=== PATIENT | female | born 1940 | race Caucasian/White ===

== ENCOUNTER 2017-12-03 19:07 | Emergency (ER) | payer MEDICARE, BC ==
[2017-12-03] MEDS: CYCLOBENZAPRINE 10 MG TABLET. PO (19:52)
[2017-12-03] MEDS: HYDROcodone/APAP 5/325MG 1 TAB TABLET PO (19:52)
== END 2017-12-03 20:03 | disposition home or self-care (01) ==
LOC: ER 19:07
DX: M54.42 Lumbago with sciatica, left side (principal); J44.9 Chronic obstructive pulmonary disease, unspecified; I25.2 Old myocardial infarction; I25.10 Atherosclerotic heart disease of native coronary artery without angina pectoris; F17.200 Nicotine dependence, unspecified, uncomplicated; Z95.5 Presence of coronary angioplasty implant and graft
CPT/HCPCS: 99283

== ENCOUNTER 2018-10-06 08:58 | Emergency (ER) | payer MEDICARE, BC ==
[~2018-10-06] VITALS: Ht 170.2 cm; Wt 73.9 kg
[~2018-10-06 08:58] MED LIST: ACET-704 PO; ASPI325T8 PO; BENZ100C PO; CYCL10TA2 PO; FLUT1DIS INH; HYDR-2761 PO
[2018-10-06 09:41] LABS: CALCIUM 8.8 mg/dL (8.5-10.1); CREATININE 1.1 mg/dL (0.7-1.3); GFR 64.9; POTASSIUM 4.3 mmol/L (3.5-5.1)
[2018-10-06 09:47] LABS: ALBUMIN 3.6 g/dL (3.4-5.0); TOTAL BILIRUBIN 0.3 mg/dL (0.2-1.0); TOTAL PROTEIN 7.1 g/dL (6.4-8.2)
[2018-10-06 09:50] LABS: BASO # 0.1 x10^3/uL (0.0-0.2); BASO % 1 % (0-3); EOS # 0.3 x10^3/uL (0.0-0.7); EOS % 3 % (0-3); HEMATOCRIT 43.5 % (39.0-53.0); HEMOGLOBIN 15.1 g/dL (13.0-17.5); LYMPH # 2.5 x10^3/uL (1.0-4.8); LYMPH % 26 % (24-48); MEAN CORPUSCULAR HEMOGLOBIN 35 pg (25-35); MEAN CORPUSCULAR HGB CONC 35 g/dL (31-37); MEAN CORPUSCULAR VOLUME 100 fL (79-100); MONO # 0.8 x10^3/uL (0.0-1.1); MONO % 8 % (0-9); NEUT # 5.9 x10^3uL (1.8-7.7); NEUT % 62 % (31-73); PLATELET COUNT 280 x10^3/uL (140-400); RED BLOOD COUNT 4.36 x10^6/uL (4.30-5.70); RED CELL DISTRIBUTION WIDTH 13.3 % (11.5-14.5); WHITE BLOOD COUNT 9.5 x10^3/uL (4.0-11.0)
--- NOTE | 2018-10-06 10:41 | RAD ---
CT HEAD AND MAXILLOFACIAL WO Indication: Right temporal pain increasing the last 2 week Technique: Noncontrast CT imaging was performed of the head and maxillofacial region, multiplanar reconstruction images submitted. One or more of the following individualized dose reduction techniques were utilized for this examination: 1. Automated exposure control 2. Adjustment of the mA and/or kV according to patient size 3. Use of iterative reconstruction technique. Comparison: June 05, [address], March 28, 2010 exams Head: Findings: There is mild supratentorial involutional changes seen previously. Ventricular size is stable, proportionate to sulcal spaces. There is no evidence of acute intracranial hemorrhage. Walker-white differentiation of the major vascular territories is maintained. There is mild ill-defined low-density of the supratentorial parenchyma bilaterally. No acute calvarial abnormality is identified. Right mastoid air cells are incompletely pneumatized more inferiorly, unchanged appearance. There is degree of associated sclerosis although also stable in appearance. IMPRESSION: 1. No acute intracranial abnormality is identified. 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 Maxillofacial CT: FINDINGS: Paranasal sinuses are overall aerated, no air-fluid levels. No acute maxillofacial fracture is identified. There is no new aggressive bone destruction. There is multilevel facet degenerative change of visualized cervical spine. There is mild to moderate narrowing the right C3-C4 neural foramen, minimal narrowing on the left at C4-C5. IMPRESSION: 1. Paranasal sinuses are aerated. Electronically signed by: Rafat Hawthorne MD (10/06/2018 10:37 AM) [email or web address]
[2018-10-06] MEDS ORDERED: HYDR-3164 PO (10:51)
--- NOTE | 2018-10-06 10:52 | PHYS DOC ---
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 The patient states that he was having some intermittent pain over the past 2 weeks that has worsened. He denies history of migraine. He denies nausea or vomiting, or fever. He has tried ibuprofen and Tylenol with little relief. 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) Review of Systems Review of Systems Constitutional: Denies fever or chills [] Eyes: Denies change in visual acuity, redness, or eye pain [] HENT: Denies nasal congestion or sore throat [] Respiratory: Denies cough or shortness of breath [] Cardiovascular: No additional information not addressed in HPI [] GI: Denies abdominal pain, nausea, vomiting, bloody stools or diarrhea [] : Denies dysuria or hematuria [] Musculoskeletal: Denies back pain or joint pain [] Integument: Denies rash or skin lesions [] Neurologic: See history of present illness Endocrine: Denies polyuria or polydipsia [] All other systems were reviewed and found to be within normal limits, except as documented in this note. 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 [] HENT: Normocephalic, atraumatic, bilateral external ears normal, oropharynx moist, no oral exudates, nose normal. [] Eyes: PERRLA, EOMI, conjunctiva normal, no discharge. [] Neck: Normal range of motion, no tenderness, supple, no stridor. [] Cardiovascular:Heart rate regular rhythm, no murmur [] Lungs & Thorax: Bilateral breath sounds clear to auscultation [] Abdomen: Bowel sounds normal, soft, no tenderness, no masses, no pulsatile masses. [] Skin: Warm, dry, no erythema, no rash. [] Back: No tenderness, no CVA tenderness. [] Extremities: No tenderness, no cyanosis, no clubbing, ROM intact, no edema. [] Neurologic: Alert and oriented X 3, normal motor function, normal sensory function, no focal deficits noted, cranial nerves II through XII are grossly intact. [] Psychologic: Affect normal, judgement normal, mood normal. [] (ORLIN KING APRN) Current Patient Data Vital Signs Vital Signs Date Time Temp Pulse Resp B/P (MAP) Pulse Ox O2 Delivery O2 Flow Rate FiO2 10/06/18 10:58 60 20 97 10/06/18 09:02 97.6 158/80 (106) Room Air 97.6 (CANDACE FLORES MD) Lab Values Laboratory Tests Test 10/06/18 09:20 White Blood Count 9.5 x10^3/uL (4.0-11.0) Red Blood Count 4.36 x10^6/uL (4.30-5.70) Hemoglobin 15.1 g/dL (13.0-17.5) Hematocrit 43.5 % (39.0-53.0) Mean Corpuscular Volume 100 fL (79-100) Mean Corpuscular Hemoglobin 35 pg (25-35) Mean Corpuscular Hemoglobin Concent 35 g/dL (31-37) Red Cell Distribution Width 13.3 % (11.5-14.5) Platelet Count 280 x10^3/uL (140-400) Neutrophils (%) (Auto) 62 % (31-73) Lymphocytes (%) (Auto) 26 % (24-48) Monocytes (%) (Auto) 8 % (0-9) Eosinophils (%) (Auto) 3 % (0-3) Basophils (%) (Auto) 1 % (0-3) Neutrophils # (Auto) 5.9 x10^3uL (1.8-7.7) Lymphocytes # (Auto) 2.5 x10^3/uL (1.0-4.8) Monocytes # (Auto) 0.8 x10^3/uL (0.0-1.1) Eosinophils # (Auto) 0.3 x10^3/uL (0.0-0.7) Basophils # (Auto) 0.1 x10^3/uL (0.0-0.2) Sodium Level 136 mmol/L (136-145) Potassium Level 4.3 mmol/L (3.5-5.1) Chloride Level 102 mmol/L (98-107) Carbon Dioxide Level 25 mmol/L (21-32) Anion Gap 9 (6-14) Blood Urea Nitrogen 14 mg/dL (8-26) Creatinine 1.1 mg/dL (0.7-1.3) Estimated GFR (Cockcroft-Gault) 64.9 BUN/Creatinine Ratio 13 (6-20) Glucose Level 112 mg/dL (70-99) H Calcium Level 8.8 mg/dL (8.5-10.1) Total Bilirubin 0.3 mg/dL (0.2-1.0) Aspartate Amino Transferase (AST) 15 U/L (15-37) Alanine Aminotransferase (ALT) 18 U/L (16-63) Alkaline Phosphatase 69 U/L (46-116) Total Protein 7.1 g/dL (6.4-8.2) Albumin 3.6 g/dL (3.4-5.0) Albumin/Globulin Ratio 1.0 (1.0-1.7) Laboratory Tests 10/06/18 09:20 Laboratory Tests 10/06/18 09:20 (CANDACE FLORES MD) EKG EKG [] (ORLIN KING APRN) Radiology/Procedures Radiology/Procedures [] PATIENT: JERILYN GOMEZ ACCOUNT: [id number] : 1940 LOCATION: ER AGE: 77 SEX: M EXAM STATUS: REG ER ORD. PHYSICIAN: ORLIN KING APRN REASON: right temporal pain increasing over the last two weeks PROCEDURE: CT HEAD AND MAXILLOFACIAL WO CT HEAD AND MAXILLOFACIAL WO Indication: Right temporal pain increasing the last 2 week Technique: Noncontrast CT imaging was performed of the head and maxillofacial region, multiplanar reconstruction images submitted. One or more of the following individualized dose reduction techniques were utilized for this examination: 1. Automated exposure control 2. Adjustment of the mA and/or kV according to patient size 3. Use of iterative reconstruction technique. Comparison: June 05, [address], March 28, 2010 exams Head: Findings: There is mild supratentorial involutional changes seen previously. Ventricular size is stable, proportionate to sulcal spaces. There is no evidence of acute intracranial hemorrhage. Walker-white differentiation of the major vascular territories is maintained. There is mild ill-defined low-density of the supratentorial parenchyma bilaterally. No acute calvarial abnormality is identified. Right mastoid air cells are incompletely pneumatized more inferiorly, unchanged appearance. There is degree of associated sclerosis although also stable in appearance. IMPRESSION: 1. No acute intracranial abnormality is identified. 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 Maxillofacial CT: FINDINGS: Paranasal sinuses are overall aerated, no air-fluid levels. No acute maxillofacial fracture is identified. There is no new aggressive bone destruction. There is multilevel facet degenerative change of visualized cervical spine. There is mild to moderate narrowing the right C3-C4 neural foramen, minimal narrowing on the left at C4-C5. IMPRESSION: 1. Paranasal sinuses are aerated. Electronically signed by: Reece Blanc MD (10/06/2018 10:37 AM) [id number] DICTATED and SIGNED BY: REECE BLANC MD DATE: 10/06/18 1037 (ORLIN KING APRN) Course & Med Decision Making Course & Med Decision Making Pertinent Labs and Imaging studies reviewed. (See chart for details) [] (ORLIN KING APRN) Course & Med Decision Making Staff Physician Addendum: I was working in the ER during the course of this patient's visit. I was available for consultation as needed, but I was not directly involved in the care of this patient. (CANDACE FLORES MD) Dragon Disclaimer Dragon Disclaimer This electronic medical record was generated, in whole or in part, using a voice recognition dictation system. (ORLIN KING APRN) Departure Departure Impression: Primary Impression: Right temporal headache Disposition: HOME, SELF-CARE Condition: STABLE Referrals: UNKNOWN PCP NAME (PCP) Patient Instructions: General Headache Without Cause Additional Instructions: Take medication as directed. Do not drive while taking this medication. Follow- up with your primary care provider for further recheck in 4 days. If worsening return to the emergency department. Scripts Hydrocodone/Apap 5-325 (NORCO 5-325 TABLET) 1 Each Tablet 1 TAB PO PRN Q6HRS PRN for PAIN, #14 TAB 0 Refills Prov: ORLIN KING APRN 10/06/18 ORLIN KING APRN Oct 06, 2018 10:52 CANDACE FLORES MD Oct 07, 2018 18:38
[2018-10-06 10:58] VITALS: BP 147/70
== END 2018-10-06 11:05 | disposition home or self-care (01) ==
LOC: ER 08:58
DX: R51 Headache (principal); H61.22 Impacted cerumen, left ear; E03.9 Hypothyroidism, unspecified; I25.2 Old myocardial infarction; G89.29 Other chronic pain; F17.200 Nicotine dependence, unspecified, uncomplicated
CPT/HCPCS: 36415; 69209; 70450; 70486; 80053; 85025; 99285-25

== ENCOUNTER 2019-05-08 09:51 | Emergency (ER) | payer MEDICARE, BC ==
[~2019-05-08] VITALS: Ht 167.6 cm; Wt 63.5 kg
[~2019-05-08 09:51] MED LIST changes: +HYDR-3164 PO
--- NOTE | 2019-05-08 10:20 | PHYS DOC ---
Past Medical History Past Medical History: Hypothyroid, [place], Other Additional Past Medical Histor: CHRONIC BACK PAIN Past Surgical History: Other Additional Past Surgical Histo: BACK,TOE AMPUTATIONS,KNEE Alcohol Use: None Drug Use: None Adult General Chief Complaint Chief Complaint: ABDOMINAL PAIN HPI HPI 70-year-old male presents to the emergency Department complaints of pain to the left upper quadrant. He states has been ongoing several months off and on however last night was worse. He states he felt a knot in his left upper abdomen with no radiation. He denies any nausea, vomiting, fever, diarrhea, constipation. Nothing makes the pain worse, nothing makes the pain better. Review of Systems Review of Systems Constitutional: Denies fever or chills [] Eyes: Denies change in visual acuity, redness, or eye pain [] HENT: Denies nasal congestion or sore throat [] Respiratory: Denies cough or shortness of breath [] Cardiovascular: No additional information not addressed in HPI [] GI: Denies abdominal pain, nausea, vomiting, bloody stools or diarrhea [] : Denies dysuria or hematuria [] Musculoskeletal: Denies back pain or joint pain [] Integument: Denies rash or skin lesions [] Neurologic: Denies headache, focal weakness or sensory changes [] Endocrine: Denies polyuria or polydipsia [] All other systems were reviewed and found to be within normal limits, except as documented in this note. Allergies Allergies Allergies Coded Allergies Type Severity Reaction Last Updated Verified No Known Drug Allergies 09/14/13 No Physical Exam Physical Exam Constitutional: Well developed, well nourished, no acute distress, non-toxic appearance. [] HENT: Normocephalic, atraumatic, bilateral external ears normal, oropharynx moist, no oral exudates, nose normal. [] Eyes: PERRLA, EOMI, conjunctiva normal, no discharge. [] Cardiovascular:Heart rate regular rhythm, no murmur [] Lungs & Thorax: Bilateral breath sounds clear to auscultation [] Abdomen: Bowel sounds normal, soft, no tenderness, no masses, no pulsatile masses. [] Skin: Warm, dry, no erythema, no rash. [] Back: No tenderness, no CVA tenderness. [] Extremities: No tenderness, no edema. [] Neurologic: Alert and oriented X 3, no focal deficits noted. [] Psychologic: Affect normal, judgement normal, mood normal. [] Current Patient Data Vital Signs Vital Signs Date Time Temp Pulse Resp B/P (MAP) Pulse Ox O2 Delivery O2 Flow Rate FiO2 05/08/19 11:08 62 18 104/58 (73) 93 Room Air 05/08/19 10:01 96.4 96.4 Lab Values Laboratory Tests Test 05/08/19 10:30 White Blood Count 5.4 x10^3/uL (4.0-11.0) Red Blood Count 4.26 x10^6/uL (4.30-5.70) L Hemoglobin 14.8 g/dL (13.0-17.5) Hematocrit 41.6 % (39.0-53.0) Mean Corpuscular Volume 98 fL (79-100) Mean Corpuscular Hemoglobin 35 pg (25-35) Mean Corpuscular Hemoglobin Concent 36 g/dL (31-37) Red Cell Distribution Width 12.5 % (11.5-14.5) Platelet Count 250 x10^3/uL (140-400) Neutrophils (%) (Auto) 48 % (31-73) Lymphocytes (%) (Auto) 34 % (24-48) Monocytes (%) (Auto) 11 % (0-9) H Eosinophils (%) (Auto) 6 % (0-3) H Basophils (%) (Auto) 1 % (0-3) Neutrophils # (Auto) 2.6 x10^3/uL (1.8-7.7) Lymphocytes # (Auto) 1.8 x10^3/uL (1.0-4.8) Monocytes # (Auto) 0.6 x10^3/uL (0.0-1.1) Eosinophils # (Auto) 0.3 x10^3/uL (0.0-0.7) Basophils # (Auto) 0.1 x10^3/uL (0.0-0.2) Sodium Level 136 mmol/L (136-145) Potassium Level 4.2 mmol/L (3.5-5.1) Chloride Level 100 mmol/L (98-107) Carbon Dioxide Level 25 mmol/L (21-32) Anion Gap 11 (6-14) Blood Urea Nitrogen 12 mg/dL (8-26) Creatinine 1.0 mg/dL (0.7-1.3) Estimated GFR (Cockcroft-Gault) 72.3 BUN/Creatinine Ratio 12 (6-20) Glucose Level 98 mg/dL (70-99) Calcium Level 8.5 mg/dL (8.5-10.1) Total Bilirubin 0.4 mg/dL (0.2-1.0) Aspartate Amino Transferase (AST) 19 U/L (15-37) Alanine Aminotransferase (ALT) 13 U/L (16-63) L Alkaline Phosphatase 82 U/L (46-116) Troponin I Quantitative < 0.017 ng/mL (0.000-0.055) Total Protein 7.1 g/dL (6.4-8.2) Albumin 3.5 g/dL (3.4-5.0) Albumin/Globulin Ratio 1.0 (1.0-1.7) Lipase 101 U/L (73-393) Laboratory Tests 05/08/19 10:30 Laboratory Tests 05/08/19 10:30 EKG EKG EKG reviewed, normal sinus rhythm, heart rate 64, normal axis no evidence of STEMI. Interpretation time 1027[] Radiology/Procedures Radiology/Procedures [] Course & Med Decision Making Course & Med Decision Making Pertinent Labs and Imaging studies reviewed. (See chart for details) []70-year-old male presents to the emergency Department complaints of pain to the left upper quadrant. He states has been ongoing several months off and on however last night was worse. He states he felt a knot in his left upper abdomen with no radiation. He denies any nausea, vomiting, fever, diarrhea, constipation. Nothing makes the pain worse, nothing makes the pain better. Labs/Imaging reviewed - no acute process identified Bentyl rx provided upon discharge Recommend follow up with PCP Return precautions provided Dragon Disclaimer Dragon Disclaimer This electronic medical record was generated, in whole or in part, using a voice recognition dictation system. Departure Departure Impression: Primary Impression: Abdominal pain Disposition: 01 HOME, SELF-CARE Condition: STABLE Referrals: ROMA FREEMAN MD (PCP) Patient Instructions: Abdominal Pain (Nonspecific) Additional Instructions: Recommend follow up with PCP 3 - 5 days Return to the ER with worsening symptoms, intractable pain, fever, altered mental status Tylenol/Motrin as needed for pain Take medications as recommended Scripts Dicyclomine Hcl (DICYCLOMINE HCL) 10 Mg Capsule 1 CAP PO PRN Q6HRS for 5 Days, #100 CAP 3 Refills Prov: JAH KHALIL MD 05/08/19 Problem Qualifiers Primary Impression: Abdominal pain Abdominal location: unspecified location Qualified Codes: R10.9 - Unspecified abdominal pain JAH KHALIL MD May 08, 2019 10:20
[2019-05-08 10:36] LABS: BASO # 0.1 x10^3/uL (0.0-0.2); BASO % 1 % (0-3); EOS # 0.3 x10^3/uL (0.0-0.7); EOS % 6 % (0-3); HEMATOCRIT 41.6 % (39.0-53.0); HEMOGLOBIN 14.8 g/dL (13.0-17.5); LYMPH # 1.8 x10^3/uL (1.0-4.8); LYMPH % 34 % (24-48); MEAN CORPUSCULAR HEMOGLOBIN 35 pg (25-35); MEAN CORPUSCULAR HGB CONC 36 g/dL (31-37); MEAN CORPUSCULAR VOLUME 98 fL (79-100); MONO # 0.6 x10^3/uL (0.0-1.1); MONO % 11 % (0-9); NEUT # 2.6 x10^3/uL (1.8-7.7); NEUT % 48 % (31-73); PLATELET COUNT 250 x10^3/uL (140-400); RED BLOOD COUNT 4.26 x10^6/uL (4.30-5.70); RED CELL DISTRIBUTION WIDTH 12.5 % (11.5-14.5); WHITE BLOOD COUNT 5.4 x10^3/uL (4.0-11.0)
[2019-05-08 10:48] LABS: CALCIUM 8.5 mg/dL (8.5-10.1); GFR 72.3; POTASSIUM 4.2 mmol/L (3.5-5.1)
[2019-05-08 10:54] LABS: ALBUMIN 3.5 g/dL (3.4-5.0); TOTAL BILIRUBIN 0.4 mg/dL (0.2-1.0); TOTAL PROTEIN 7.1 g/dL (6.4-8.2)
--- NOTE | 2019-05-08 11:20 | RAD ---
AP chest. HISTORY: Left-sided pain AP view was taken of the chest. Comparison is made with a recent study from the [address] There is chronic interstitial lung disease. There is no pleural effusion. There is no confluent infiltrate. Heart is normal in size. There is no pneumothorax. IMPRESSION: 1. Fibrosis or chronic interstitial lung disease. 2. No acute confluent infiltrates. Electronically signed by: Clinton Keith MD (05/08/2019 11:17 AM) [id number]
[2019-05-08] MEDS ORDERED: DICY10CA3 PO (11:24)
[2019-05-08 11:38] VITALS: BP 126/64
--- NOTE | 2019-05-09 10:36 | EKG ---
[facility] [address] [place] [address] Test Date: 2019-05-08 Test Time: 10:27:00 Pat Name: JERILYN GOMEZ Department: Room: Gender: M Ncr Operator: : 1940 Requested By: JAH KHALIL Order Number: [id number] Reading MD: Measurements Intervals [place] Rate: 64 P: 33 IA: 184 QRS: 36 QRSD: 82 T: 42 QT: 392 QTc: 404 Interpretive Statements SINUS RHYTHM R-S TRANSITION ZONE IN V LEADS DISPLACED TO THE RIGHT NO SPECIFIC ECG ABNORMALITIES RI6.01 No previous ECG available for comparison
== END 2019-05-08 11:45 | disposition home or self-care (01) ==
LOC: ER 09:51
DX: R10.12 Left upper quadrant pain (principal); E03.9 Hypothyroidism, unspecified; I25.2 Old myocardial infarction; G89.29 Other chronic pain
CPT/HCPCS: 36415; 71045; 80053; 83690; 84484; 85025; 93005; 99285-25

== ENCOUNTER 2020-04-18 19:53 | Emergency (ER) | payer MEDICARE, BC ==
[~2020-04-18] VITALS: Ht 170.2 cm; Wt 68.0 kg
[~2020-04-18 19:53] MED LIST changes: +DICY10CA3 PO
[2020-04-18 21:53] VITALS: BP 111/56
== END 2020-04-18 22:05 | disposition left against medical advice (07) ==
LOC: ER 19:53
DX: H92.02 Otalgia, left ear (principal); M54.2 Cervicalgia; Z53.21 Procedure and treatment not carried out due to patient leaving prior to being seen by health care provider

== ENCOUNTER 2020-05-19 11:37 | Emergency (ER) | payer MEDICARE, BC ==
[~2020-05-19] VITALS: Ht 170.2 cm; Wt 68.0 kg
--- NOTE | 2020-05-19 11:45 | ED.ADGEN ---
Past Medical History Past Medical History: Hypothyroid, [place], Other Additional Past Medical Histor: CHRONIC BACK PAIN Past Surgical History: Other Additional Past Surgical Histo: BACK,TOE AMPUTATIONS,KNEE, 12 CARDIAC STENTS Smoking Status: Current Every Day Smoker Alcohol Use: None Drug Use: None General Adult EDM: Chief Complaint: HEMORRHOIDS HPI: HPI: Patient is a 79 year old male who arrives ambulatory to the emergency department complaining of rectal discomfort. Patient reports over the past month he has noticed increasing discomfort/pain whenever evacuating his bowels. Patient reports he is put this off her quite some time because he has been caring for his who recently broke her hip. Patient states his is mandated that he go to the emergency department for further evaluation given his discomfort. Despite having this pain, the patient denies any history of blood in his stools. He further denies any abdominal pain, fevers or history of trauma. He is awake, alert and nontoxic appearing. Review of Systems: Review of Systems: Constitutional: Denies fever or chills. [] Eyes: Denies change in visual acuity. [] HENT: Denies nasal congestion or sore throat. [] Respiratory: Denies cough or shortness of breath. [] Cardiovascular: Denies chest pain or edema. [] GI: Reports to rectal pain/discomfort. Denies abdominal pain, nausea, vomiting, bloody stools or diarrhea. [] : Denies dysuria. [] Musculoskeletal: Denies back pain or joint pain. [] Integument: Denies rash. [] Neurologic: Denies headache, focal weakness or sensory changes. [] Endocrine: Denies polyuria or polydipsia. [] Lymphatic: Denies swollen glands. [] Psychiatric: Denies depression or anxiety. [] Current Medications: Current Medications Medications (Trade) Dose Ordered Sig/Maryuri Start Time Stop Time Status Last Admin Dose Admin Iohexol (Omnipaque 300 Mg/ml) 75 ml 1X ONCE 05/19/20 13:45 05/19/20 13:46 DC Allergies: Allergies: Allergies Coded Allergies Type Severity Reaction Last Updated Verified No Known Drug Allergies 09/14/13 No Physical Exam: PE: Constitutional: Well developed, well nourished, no acute distress, non-toxic appearance. [] HENT: Normocephalic, atraumatic, bilateral external ears normal, oropharynx moist, no oral exudates, nose normal. [] Eyes: PERRLA, EOMI, conjunctiva normal, no discharge. [] Neck: Normal range of motion, no tenderness, supple, no stridor. [] Cardiovascular:Heart rate regular rhythm, no murmur [] Lungs & Thorax: Bilateral breath sounds clear to auscultation [] Abdomen: Bowel sounds normal, soft, no tenderness, no masses, no pulsatile masses. [] Skin: Warm, dry, no erythema, no rash. [] Back: No tenderness, no CVA tenderness. [] Extremities: No tenderness, no cyanosis, no clubbing, ROM intact, no edema. [] Neurologic: Alert and oriented X 3, normal motor function, normal sensory function, no focal deficits noted. [] Psychologic: Affect normal, judgement normal, mood normal. [] Current Patient Data: Labs: Laboratory Tests Test 05/19/20 11:50 05/19/20 12:26 White Blood Count 7.9 x10^3/uL (4.0-11.0) Red Blood Count 4.20 x10^6/uL (4.30-5.70) L Hemoglobin 14.2 g/dL (13.0-17.5) Hematocrit 41.8 % (39.0-53.0) Mean Corpuscular Volume 100 fL (79-100) Mean Corpuscular Hemoglobin 34 pg (25-35) Mean Corpuscular Hemoglobin Concent 34 g/dL (31-37) Red Cell Distribution Width 12.7 % (11.5-14.5) Platelet Count 299 x10^3/uL (140-400) Neutrophils (%) (Auto) 54 % (31-73) Lymphocytes (%) (Auto) 32 % (24-48) Monocytes (%) (Auto) 8 % (0-9) Eosinophils (%) (Auto) 5 % (0-3) H Basophils (%) (Auto) 1 % (0-3) Neutrophils # (Auto) 4.2 x10^3/uL (1.8-7.7) Lymphocytes # (Auto) 2.5 x10^3/uL (1.0-4.8) Monocytes # (Auto) 0.6 x10^3/uL (0.0-1.1) Eosinophils # (Auto) 0.4 x10^3/uL (0.0-0.7) Basophils # (Auto) 0.1 x10^3/uL (0.0-0.2) Sodium Level 138 mmol/L (136-145) Potassium Level 4.1 mmol/L (3.5-5.1) Chloride Level 105 mmol/L (98-107) Carbon Dioxide Level 24 mmol/L (21-32) Anion Gap 9 (6-14) Blood Urea Nitrogen 9 mg/dL (8-26) Creatinine 0.9 mg/dL (0.7-1.3) Estimated GFR (Cockcroft-Gault) 81.4 BUN/Creatinine Ratio 10 (6-20) Glucose Level 94 mg/dL (70-99) Calcium Level 8.5 mg/dL (8.5-10.1) Total Bilirubin 0.1 mg/dL (0.2-1.0) L Aspartate Amino Transferase (AST) 17 U/L (15-37) Alanine Aminotransferase (ALT) 13 U/L (16-63) L Alkaline Phosphatase 89 U/L (46-116) Total Protein 6.9 g/dL (6.4-8.2) Albumin 3.0 g/dL (3.4-5.0) L Albumin/Globulin Ratio 0.8 (1.0-1.7) L Laboratory Tests 05/19/20 11:50 Laboratory Tests 05/19/20 12:26 Vital Signs: Vital Signs Date Time Temp Pulse Resp B/P (MAP) Pulse Ox O2 Delivery O2 Flow Rate FiO2 05/19/20 12:47 58 145/72 (96) 96 Room Air 05/19/20 11:40 97.9 20 97.9 EKG: EKG: [] Heart Score: Risk Factors: Risk Factors: DM, Current or recent (<one month) smoker, HTN, HLP, family history of CAD, obesity. Risk Scores: Score 0 - 3: 2.5% MACE over next 6 weeks - Discharge Home Score 4 - 6: 20.3% MACE over next 6 weeks - Admit for Clinical Observation Score 7 - 10: 72.7% MACE over next 6 weeks - Early Invasive Strategies Radiology/Procedures: Radiology/Procedures: [] Impression: [facility] [address] [place] [address] IMAGING REPORT Signed PATIENT: JERILYN GOMEZ ACCOUNT: [id number] : 1940 LOCATION: ER AGE: 79 SEX: M EXAM STATUS: REG ER ORD. PHYSICIAN: ANDI ARGUETA DO REASON: Rectal discomfort PROCEDURE: CT ABD PELV W/ IV CONTRST ONLY Examination: CT ABDOMEN+PELVIS W History: : Rectal discomfort; prostate cancer/ Spl. Instructions: INJ 75ML OMNI 300 / History: Comparison/Correlation: None Findings: Axial images of the abdomen and pelvis were obtained following IV contrast. Sagittal and coronal reformatted images were provided. Consolidation involving the lung bases to the . Liver, spleen, pancreas, and adrenal glands are normal. No enlarged abdominal or pelvic lymph nodes. No ascites. Large quantity of stool in the colon is present. No inflammatory findings. Diverticulosis is noted. Bilateral extrarenal pelves noted. Kidneys are unremarkable. No extraluminal gas. No bowel obstruction. Prostatic brachytherapy seeds are present. Prostate gland measures up to 3.8 cm x 3.2 cm. Multilevel disc space narrowing of the lumbar spine noted. Advanced facet joint degenerative changes lumbar spine bilaterally are present No abdominal aortic aneurysm. Minimal presacral fluid or edema noted. No loculated collection. Mild circumferential wall thickening of the distal rectum and this may represent a contraction or spasm. No surrounding inflammation. Leads are present posterior to the L5 posterior elements and sacrum. The distal right iliac bone medially. Correlate with history of intervention. Impression: Large quantity of stool in the colon noted. No obstruction. Diverticulosis. No acute inflammation. Mild circumferential wall thickening of the rectum distally probably represents contraction was present. No inflammatory finding. Prostate gland is unremarkable in size. No enlarged pelvic lymph nodes. Electronically signed by: Ron Navarro MD (05/19/2020 2:23 PM) [id number] DICTATED and SIGNED BY: RON NAVARRO MD DATE: 05/19/20 [id number] 0 Course & Med Decision Making: Course & Med Decision Making Pertinent Labs and Imaging studies reviewed. (See chart for details) [] The patient remains awake, alert and in no acute distress. Moreover he denies real pain at this time. CT imaging did show what was interpreted as above fecal retention in addition to a possible rectal spasm/contraction. I did communicate to the patient I did not believe he had any malignancy underlying his symptoms however I do believe he warrants GI follow-up for further evaluation. The patient understands and states he will do this. He is nontoxic-appearing and stable for discharge. Dragon Disclaimer: Dragon Disclaimer: This electronic medical record was generated, in whole or in part, using a voice recognition dictation system. Departure Departure Impression: Primary Impression: Rectal fullness Additional Impressions: Fecal retention Tobacco dependence Disposition: 01 DC HOME SELF CARE/HOMELESS Condition: STABLE Referrals: ROMA FREEMAN MD (PCP) Patient Instructions: Constipation, Adult Scripts Docusate Sodium (DOCUSATE SODIUM) 100 Mg Capsule 1 CAP PO DAILY for constipation for 14 Days, #14 CAP 0 Refills Prov: ANDI ARGUETA DO 05/19/20 Problem Qualifiers ANDI ARGUETA DO May 19, 2020 11:45
[2020-05-19 12:07] LABS: BASO # 0.1 x10^3/uL (0.0-0.2); BASO % 1 % (0-3); EOS # 0.4 x10^3/uL (0.0-0.7); EOS % 5 % (0-3); HEMATOCRIT 41.8 % (39.0-53.0); HEMOGLOBIN 14.2 g/dL (13.0-17.5); LYMPH # 2.5 x10^3/uL (1.0-4.8); LYMPH % 32 % (24-48); MEAN CORPUSCULAR HEMOGLOBIN 34 pg (25-35); MEAN CORPUSCULAR HGB CONC 34 g/dL (31-37); MEAN CORPUSCULAR VOLUME 100 fL (79-100); MONO # 0.6 x10^3/uL (0.0-1.1); MONO % 8 % (0-9); NEUT # 4.2 x10^3/uL (1.8-7.7); NEUT % 54 % (31-73); PLATELET COUNT 299 x10^3/uL (140-400); RED CELL DISTRIBUTION WIDTH 12.7 % (11.5-14.5); WHITE BLOOD COUNT 7.9 x10^3/uL (4.0-11.0)
[2020-05-19 12:59] LABS: CALCIUM 8.5 mg/dL (8.5-10.1); CREATININE 0.9 mg/dL (0.7-1.3); GFR 81.4; POTASSIUM 4.1 mmol/L (3.5-5.1)
[2020-05-19 13:11] LABS: ALBUMIN/GLOBULIN RATIO 0.8 (1.0-1.7); TOTAL BILIRUBIN 0.1 mg/dL (0.2-1.0); TOTAL PROTEIN 6.9 g/dL (6.4-8.2)
[2020-05-19] MEDS ORDERED: IOHEXOL 300 MG/ML 100ML VIAL. IV ONE (13:45)
--- NOTE | 2020-05-19 14:25 | RAD ---
Examination: CT ABDOMEN+PELVIS W History: : Rectal discomfort; prostate cancer/ Spl. Instructions: INJ 75ML OMNI 300 / History: Comparison/Correlation: None Findings: Axial images of the abdomen and pelvis were obtained following IV contrast. Sagittal and co antoinette reformatted images were provided. Consolidation involving the lung bases to the . Liver, spleen, pancreas, and adrenal glands are normal. No enlarged abdominal or pelvic lymph nodes. No ascites. Large quantity of stool in the colon is present. No inflammatory findings. Diverticulosis is noted. Bilateral extrarenal pelves noted. Kidneys are unremarkable. No extraluminal gas. No bowel obstructio n. Prostatic brachytherapy seeds are present. Prostate gland measures up to 3.8 cm x 3.2 cm. Multilevel disc space narrowing of the lumbar spine noted. Advanced facet joint degenerative changes lumbar spine bilaterally are present No abdominal aortic aneurysm. Minimal presacral fluid or edema noted. No loculated collection. Mild circumferential wall thickening of the distal rectum and this may represent a contraction or spasm. No surrounding inflammation. Aide ds are present posterior to the L5 posterior elements and sacrum. The distal right iliac bone mediall y. Correlate with history of intervention. Impression: Large quantity of stool in the colon noted. No obstruction. Diverticulosis. No acute inflammation. Mild circumferential wall thickening of the rectum distally probably represents contraction was prese nt. No inflammatory finding. Prostate gland is unremarkable in size. No enlarged pelvic lymph nodes. Electronically signed by: Ron Garner MD (05/19/2020 2:23 PM) [id number]
[2020-05-19] MEDS ORDERED: DOCU100C28 PO (14:37)
[2020-05-19 14:42] VITALS: BP 161/76
== END 2020-05-19 15:05 | disposition home or self-care (01) ==
LOC: ER 11:37
DX: K59.00 Constipation, unspecified (principal); E03.9 Hypothyroidism, unspecified; I25.2 Old myocardial infarction; G89.29 Other chronic pain; F17.200 Nicotine dependence, unspecified, uncomplicated; Z98.890 Other specified postprocedural states
CPT/HCPCS: 36415; 74177; 80053; 85025; 99285

== ENCOUNTER 2021-01-12 21:42 | Emergency (ER) | payer MEDICARE, BC ==
[~2021-01-12] VITALS: Ht 170.2 cm; Wt 58.0 kg
[~2021-01-12 21:42] MED LIST changes: +DOCU100C28 PO
[2021-01-12 21:44] VITALS: BP 127/64
[2021-01-12] MEDS ORDERED: LIDOCAINE (700MG/PATCH) PATCH. TD SCH (22:06)
[2021-01-12 22:17] LABS: BASO # 0.1 x10^3/uL (0.0-0.2); BASO % 1 % (0-3); EOS # 0.3 x10^3/uL (0.0-0.7); EOS % 3 % (0-3); HEMATOCRIT 39.8 % (39.0-53.0); LYMPH # 1.6 x10^3/uL (1.0-4.8); LYMPH % 13 % (24-48); MEAN CORPUSCULAR HEMOGLOBIN 35 pg (25-35); MEAN CORPUSCULAR HGB CONC 35 g/dL (31-37); MEAN CORPUSCULAR VOLUME 100 fL (79-100); MONO # 0.9 x10^3/uL (0.0-1.1); MONO % 7 % (0-9); NEUT # 9.6 x10^3/uL (1.8-7.7); NEUT % 77 % (31-73); PLATELET COUNT 251 x10^3/uL (140-400); RED BLOOD COUNT 3.98 x10^6/uL (4.30-5.70); RED CELL DISTRIBUTION WIDTH 13.3 % (11.5-14.5); WHITE BLOOD COUNT 12.5 x10^3/uL (4.0-11.0)
[2021-01-12 22:31] LABS: CALCIUM 8.6 mg/dL (8.5-10.1)
[2021-01-12 22:32] LABS: CREATININE 1.3 mg/dL (0.7-1.3); GFR 53.1; POTASSIUM 4.2 mmol/L (3.5-5.1)
[2021-01-12 22:37] LABS: ALBUMIN 3.5 g/dL (3.4-5.0); MAGNESIUM 2.3 mg/dL (1.8-2.4); TOTAL BILIRUBIN 0.2 mg/dL (0.2-1.0); TOTAL PROTEIN 7.1 g/dL (6.4-8.2)
--- NOTE | 2021-01-12 22:40 | PHYS DOC ---
Past Medical History Past Medical History: Cancer, Hypothyroid, [place], Other Additional Past Medical Histor: CHRONIC BACK PAIN, PROSTATE CA Past Surgical History: Other Additional Past Surgical Histo: BACK,TOE AMPUTATIONS,KNEE, 12 CARDIAC STENTS Smoking Status: Current Every Day Smoker Alcohol Use: None Drug Use: None General Adult EDM: Chief Complaint: CHEST PAIN-CARDIAC NATURE HPI: HPI: 80-year-old male past medical history of CAD (seen by GARFIELD ALEXANDRA MD in 2015, follows Dr. Cisneros @ -per emr review), only takes aspirin daily, and tobacco dependence, presents the ED with complaints of right anterior shoulder pain and right lateral neck pain that shoots (radiates) to the wrist for the past 2 months. Patient was triaged as chest pain which patient currently denies stating "I was just holding my arm up because my shoulder hurts." States he usually gets relief with 2 ibuprofen. No relief with heating pad today. Primary care physician is Dr. Alves. Is not vaccinated for Covid with no prior history of Covid. Denies any blunt trauma or injury. Reports history of heart attack 10 years ago [facility] and was told he would need cardiac bypass. States he was seen at for second opinion and they only prescribed aspirin. Patient reports they would not put any more stents in his heart, reports 18 stents. No history of head or neck trauma. Review of Systems: Review of Systems: Constitutional: Denies fever or chills. [] Eyes: Denies change in visual acuity. [] HENT: Denies nasal congestion or sore throat. [] Respiratory: Denies cough or shortness of breath. [] Cardiovascular: Denies chest pain or edema. [] GI: Denies abdominal pain, nausea, vomiting, : Denies dysuria or hematuria Musculoskeletal: Denies back pain or CVA pain Integument: Denies rash diaphoresis Neurologic: Denies headache, neck pain, focal weakness or sensory changes. [] Endocrine: Denies polyuria or polydipsia. [] Lymphatic: Denies swollen glands. [] Psychiatric: Denies depression or anxiety. [] Heart Score: C/O Chest Pain: No Risk Factors: Risk Factors: DM, Current or recent (<one month) smoker, HTN, HLP, family history of CAD, obesity. Risk Scores: Score 0 - 3: 2.5% MACE over next 6 weeks - Discharge Home Score 4 - 6: 20.3% MACE over next 6 weeks - Admit for Clinical Observation Score 7 - 10: 72.7% MACE over next 6 weeks - Early Invasive Strategies Current Medications: Current Medications Medications (Trade) Dose Ordered Sig/Maryuri Start Time Stop Time Status Last Admin Dose Admin Lidocaine (Lidoderm) 1 patch DAILY 01/12/21 22:06 01/12/21 22:18 1 PATCH Allergies: Allergies: Allergies Coded Allergies Type Severity Reaction Last Updated Verified No Known Drug Allergies 09/14/13 No Physical Exam: PE: Constitutional: Nontoxic appearing, unkept/well-nourished appearance HENT: Normocephalic, atraumatic, Eyes: EOMI, conjunctiva normal, no discharge. Neck: Normal range of motion, supple, no midline neck pain, reports right paraspinal cervical tenderness-anterior and posterior Cardiovascular: S1/2 present, regular rhythm Lungs & Thorax: Speaking in full sentences, bilateral equal chest rise, no tachypnea or increased work of breathing Skin: Warm, dry, no erythema, no rash. [] Back: No midline spinal tenderness, no CVA tenderness. [] Extremities: reports right anterior shoulder tenderness with no joint warmth or erythema, equal radial pulses, no cyanosis, no lower extremity edema Neurologic: Alert and oriented X 3, normal motor function, normal sensory function, no focal deficits noted. [] Psychologic: Affect normal, judgement normal, mood normal. [] Current Patient Data: Labs: Laboratory Tests Test 01/12/21 22:10 White Blood Count 12.5 x10^3/uL (4.0-11.0) H Red Blood Count 3.98 x10^6/uL (4.30-5.70) L Hemoglobin 14.0 g/dL (13.0-17.5) Hematocrit 39.8 % (39.0-53.0) Mean Corpuscular Volume 100 fL (79-100) Mean Corpuscular Hemoglobin 35 pg (25-35) Mean Corpuscular Hemoglobin Concent 35 g/dL (31-37) Red Cell Distribution Width 13.3 % (11.5-14.5) Platelet Count 251 x10^3/uL (140-400) Neutrophils (%) (Auto) 77 % (31-73) H Lymphocytes (%) (Auto) 13 % (24-48) L Monocytes (%) (Auto) 7 % (0-9) Eosinophils (%) (Auto) 3 % (0-3) Basophils (%) (Auto) 1 % (0-3) Neutrophils # (Auto) 9.6 x10^3/uL (1.8-7.7) H Lymphocytes # (Auto) 1.6 x10^3/uL (1.0-4.8) Monocytes # (Auto) 0.9 x10^3/uL (0.0-1.1) Eosinophils # (Auto) 0.3 x10^3/uL (0.0-0.7) Basophils # (Auto) 0.1 x10^3/uL (0.0-0.2) Laboratory Tests 01/12/21 22:10 EKG: EK bpm, no axis deviation, normal intervals, no T wave inversions, no ST elevations or ST depressions, -patient reports no active chest pressure/tightness/squeezing sensation, EKG compared with EKG from 04/2019, no new changes 2247 tension 70 bpm, no axis deviation, normal intervals, no T wave inversions, no ST elevations or ST depressions, patient reports no active chest pain Radiology/Procedures: Radiology/Procedures: []IMAGING REPORT Signed PATIENT: EJRILYN FRANZ ACCOUNT: [id number] : 1940 LOCATION: ER AGE: 80 SEX: M EXAM STATUS: REG ER ORD. PHYSICIAN: YAZMIN ALEGRIA DO REASON: right shoulder pain PROCEDURE: SHOULDER 2+V RIGHT XR SHOULDER_RIGHT 2+ VIEWS History: Reason: right shoulder pain / Spl. Instructions: / History: Technique: 3 views right shoulder Comparison: None. Findings: Normal alignment. No fracture. Moderate acromioclavicular DJD. Mild right glenohumeral DJD. Impression: 1. No acute osseous abnormality. Electronically signed by: Christian Franz DO (01/12/2021 10:50 PM) [facility] DICTATED and SIGNED BY: CHRISTIAN FRANZ DO DATE: 01/12/21 [id number] 0 IMAGING REPORT Signed PATIENT: JASONJERILYN Cross ACCOUNT: [id number] : 1940 LOCATION: ER AGE: 80 SEX: M EXAM STATUS: REG ER ORD. PHYSICIAN: YAZMIN ALEGRIA DO REASON: cp PROCEDURE: PORTABLE CHEST 1V XR CHEST 1V History: Reason: cp / Spl. Instructions: / History: Comparison: May 08, 2019 Findings: Diffuse reticular interstitial thickening. No consolidation or pleural effusion. No pneumothorax. Unchanged heart size. Impression: 1. Diffuse reticular interstitial thickening, likely chronic interstitial changes. No new consolidation. Electronically signed by: Christian Franz DO (01/12/2021 10:51 PM) [facility] DICTATED and SIGNED BY: CHRISTIAN FRANZ DO DATE: 01/12/21 [id number] 0 Course & Med Decision Making: Course & Med Decision Making Pertinent Labs and Imaging studies reviewed. (See chart for details) Prior to my reevaluation of patient, review of labs and imaging, patient requested to be discharged AGAINST MEDICAL ADVICE per rn report. Patient would not wait for me to speak to him nor would he wait for outpatient follow-up information and discharge papers. The patient has decided to leave our facility against medical advice. I have assessed patient's ability to make informed decision and feel the patient has the capacity to comprehend information regarding the current medical condition and appreciates the impact of the disease or condition and the consequences of various options for treatment, including foregoing treatment. The patient possesses the ability to evaluate all treatment options, comparing the risks and benefits of each option, communicate his or her choice in a consistent manner over time, and is able to make rational choices. I was unable to explain to the patient further testing, treatment, and evaluation I would like to perform in the emergency department visit as well as any possible alternatives that can be accomplished in a timely manner-hospital was on high volume given covid19 pandemic. RN outlined the possible risks of foregoing any or all of these interventions and the patient understands and acknowledges that the decision to leave may result in undesirable consequences such as , permanent disability, and/or loss of current lifestyle. Even though leaving AMA is not ideal, patient was a (return to the emergency department to continue emergent evaluation and to resume care as soon as possible with another provider. This conversation was witnessed by another member of the emergency department staff and we clearly communicated the patient is welcome to return anytime to continue care at our facility. Dragon Disclaimer: Dragon Disclaimer: This electronic medical record was generated, in whole or in part, using a voice recognition dictation system. Departure Departure Impression: Primary Impression: Chronic shoulder pain Additional Impression: Left against medical advice Disposition: 07 LEFT AGAINST MEDICAL ADVICE Condition: STABLE Referrals: ROMA FREEMAN MD (PCP) YAZMIN ALEGRIA DO Jan 12, 2021 22:40
--- NOTE | 2021-01-12 22:53 | RAD ---
XR SHOULDER_RIGHT 2+ VIEWS History: Reason: right shoulder pain / Spl. Instructions: / History: Technique: 3 views right shoulder Comparison: None. Findings: Normal alignment. No fracture. Moderate acromioclavicular DJD. Mild right glenohumeral DJD. Impression: 1. No acute osseous abnormality. Electronically signed by: Christian Franz DO (01/12/2021 10:50 PM) [facility]
--- NOTE | 2021-01-12 22:54 | RAD ---
XR CHEST 1V History: Reason: cp / Spl. Instructions: / History: Comparison: May 08, 2019 Findings: Diffuse reticular interstitial thickening. No consolidation or pleural effusion. No pneumothorax. Unc hanged heart size. Impression: 1. Diffuse reticular interstitial thickening, likely chronic interstitial changes. No new consolidat ion. Electronically signed by: Christian Franz DO (01/12/2021 10:51 PM) [facility] [place]
[2021-01-12 23:12] LABS: BILIRUBIN,URINE NEGATIVE (NEG); CLARITY,URINE CLEAR; COLOR,URINE YELLOW; NITRITE,URINE NEGATIVE (NEG); PH,URINE 5.5 (<5.0-8.0); PROTEIN,URINE NEGATIVE (NEG-TRACE); UROBILINOGEN,URINE 0.2 mg/dL (0.2 mg/dL)
[2021-01-12 23:20] LABS: BACTERIA,URINE 0 /HPF (0-FEW); WBC,URINE 0 /HPF (0-4)
[2021-01-12 23:22] LABS: AMPHETAMINE/METHAMPHETAMINE NEG (NEG); BARBITURATES NEG (NEG); BENZODIAZEPINES NEG (NEG); CANNABINOIDS NEG (NEG); COCAINE NEG (NEG); METHADONE NEG (NEG); OPIATES NEG (NEG); PHENCYCLIDINE NEG (NEG)
--- NOTE | 2021-01-13 00:50 | EKG ---
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
--- NOTE | 2021-01-13 00:55 | EKG ---
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
== END 2021-01-13 00:17 | disposition left against medical advice (07) ==
LOC: ER 21:42
DX: G89.29 Other chronic pain (principal); M25.511 Pain in right shoulder; M54.2 Cervicalgia; R07.89 Other chest pain; E03.9 Hypothyroidism, unspecified; I25.2 Old myocardial infarction; F17.200 Nicotine dependence, unspecified, uncomplicated
CPT/HCPCS: 36415; 71045; 73030; 80053; 80307; 81001; 83690; 83735; 83880; 84484; 85025; 93005; 99285

== ENCOUNTER → 2021-10-30 | Emergency (ER) | payer MEDICARE ==
[~2021-10-30] VITALS: Ht 172.7 cm; Wt 68.3 kg
[~2021-10-30] MED LIST changes: +CYCL10TA19 PO; -CYCL10TA2 PO; +HYDROcodone/APAP 5/325MG 1 TAB TABLET PO ONE; +IBUPROFEN 200 MG TABLET. PO ONE
[2021-10-30 23:44] VITALS: BP 127/59
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
== END | disposition home or self-care (01) ==
LOC: ER 23:14
DX: S70.02XA Contusion of left hip, initial encounter (principal); S60.212A Contusion of left wrist, initial encounter; S60.211A Contusion of right wrist, initial encounter; S40.012A Contusion of left shoulder, initial encounter; E03.9 Hypothyroidism, unspecified; I25.2 Old myocardial infarction; G89.29 Other chronic pain; F17.200 Nicotine dependence, unspecified, uncomplicated; Y08.89XA Assault by other specified means, initial encounter; Y93.89 Activity, other specified; Y92.89 Other specified places as the place of occurrence of the external cause; Y99.8 Other external cause status
CPT/HCPCS: 73030; 73502; 99284; 73110-50